=== PATIENT | female | born 1945 | race Caucasian/White ===

== ENCOUNTER 2018-11-10 10:00 | Observation (INO) | payer MEDICARE ==
[2018-11-09 15:41] VITALS: BP 138/75
[~2018-11-10] VITALS: Ht 154.9 cm; Wt 54.0 kg
[2018-11-10] VITALS (16 sets, daily range): BP systolic 102–152; BP diastolic 57–79
[2018-11-10] MEDS: CEFAZOLIN SODIUM 1 GM VIAL IVP ONE ×2 (08:00→17:15)
[~2018-11-10 10:00] MED LIST: CALC600T12 PO; CHOL200016 PO; INSTAFLEX PO; LEVO75TA10 PO; PREMC VG; ROSU10TA27 PO
[2018-11-10] MEDS ORDERED: LACTATED RINGERS 1000ML 1,000 ML IV ONE (10:46)
[2018-11-10] MEDS ORDERED: CEFAZOLIN SODIUM 1 GM VIAL ONE (10:46)
--- NOTE | 2018-11-10 11:31 | NUR ---
PAIN pt states no pain at rest,shoulder hurts when moving
[2018-11-10] MEDS ORDERED: POLY17PO4 PO (12:23)
[2018-11-10] MEDS ORDERED: MIDAZOLAM HCL 1 MG/ML 2ML VIAL ONE (16:48)
[2018-11-10] MEDS ORDERED: ONDANSETRON HCL 4 MG/2 ML VIAL ONE (16:54)
[2018-11-10] MEDS ORDERED: ROCURONIUM 10MG/1ML SYR 10 MG/ML ML ONE ×2 (16:54→17:36)
[2018-11-10] MEDS ORDERED: PROPOFOL 10 MG/ML 20ML VIAL IV ONE (16:54)
[2018-11-10] MEDS ORDERED: EPINEPHRINE 1 MG/ML 30ML VIAL IJ ONE (17:08)
[2018-11-10] MEDS ORDERED: DEXAMETHASONE SOD PHOSPHATE 10MG/ML 1ML VIAL ONE (17:08)
[2018-11-10] MEDS ORDERED: ROPIVACAINE 0.5% 5MG/ML 30ML IJ ONE (17:26)
[2018-11-10] MEDS ORDERED: FENTANYL CITRATE PF 50 MCG/1 ML 2ML VIAL ONE (19:09)
[2018-11-10] MEDS ORDERED: GLYCOPYRROLATE 1 MG/5 ML SYRINGE ONE (19:18)
[2018-11-10] MEDS ORDERED: NEOSTIGMINE 5MG/5ML SYR IV ONE (19:18)
[2018-11-10] MEDS ORDERED: CEPH500B PO (19:40)
[2018-11-10] MEDS ORDERED: HYDR-4457 PO (19:40)
[2018-11-10] MEDS ORDERED: NAPR-1192 PO (19:40)
[2018-11-10] MEDS ORDERED: MEPERIDINE-PF 25 MG/ML SYG ONE (20:14)
--- NOTE | 2018-11-10 20:40 | NUR ---
post op note received patient from pacu, patient awake, alert, ox3, no sob, no c/o pain ,at this time, dressing left shoulder d/i , left arm sling intact, keep pillow under left elbow, right hand with 20 gauge catheter with ivf infusing well, ble scds in place, patients at bedside, teach plan of care and expected outcome, both verbalize understanding via teach back
[2018-11-10] MEDS ORDERED: LACTATED RINGERS 1000ML 1,000 ML IV SCH (21:15)
[2018-11-10] MEDS ORDERED: HYDROCODONE/ACETAMINOPHEN 5/325 MG TAB PO PRN (21:15)
[2018-11-10] MEDS ORDERED: KETOROLAC TROMETHAMINE 15MG/ML IV PRN (21:15)
[2018-11-10] MEDS ORDERED: ONDANSETRON HCL 4 MG/2 ML VIAL IVP PRN (21:15)
[2018-11-10] MEDS ORDERED: ESTROGENS,CONJUGATED 0.625 MG/GM 42.5 GM VAG CRM VG SCH (23:00)
[2018-11-11 00:29] VITALS: BP 105/60
[2018-11-11 03:30] VITALS: BP 104/54
[2018-11-11] MEDS ORDERED: LEVOTHYROXINE 75 MCG TABLET PO SCH (06:30)
[2018-11-11 08:00] VITALS: BP 108/67
[2018-11-11] MEDS ORDERED: CEPHALEXIN 500 MG CAPSULE PO ONE (08:00)
[2018-11-11] MEDS ORDERED: CALCIUM 600 + VITAMIN D 400 TABLET PO SCH (09:00)
[2018-11-11] MEDS ORDERED: ***HM***Cholecalciferol (Vitamin D3) 2,000 UNIT PO SCH (09:00)
[2018-11-11] MEDS ORDERED: INSTAFLEX PO SCH (09:00)
[2018-11-11] MEDS ORDERED: POLYETHYLENE GLYCOL 3350 17 GM POWD.PACK PO SCH (09:00)
--- NOTE | 2018-11-11 10:30 | NUR ---
DISCHARGE DISCHARGE TEACHING DONE WITH PATIENT AND FAMILY USING TEACHBACK METHOD, VERBALIZED UNDERSTANDING. NO NOTED SOB OR DISTRESS. DRESSING IS DRY AND INTACT. DRESSING TEACHING DONE WITH PATIENT AND FAMILY USING TEACHBACK METHOD, VERBALIZED UNDERSTANDING. IV REMOVED, CATH TIP INTACT. SLING USE TEACHING DONE WITH PATIENT, VERBALIZED UNDERSTANDING. PENDING TO BE TRANSFERRED OUT VIA PRIVATE VEHICLE.
[2018-11-11] MEDS ORDERED: ROSUVASTATIN CALCIUM 10 MG PO SCH (21:00)
== END 2018-11-11 10:56 | disposition home or self-care (01) ==
LOC: DAH 10:00 → 4AH 10:01 → DAH 10:01
PROVIDERS: ADMIT Orthopaedic Surgery; ATTEND Orthopaedic Surgery
DX: M75.102 Unspecified rotator cuff tear or rupture of left shoulder, not specified as traumatic (principal); M19.019 Primary osteoarthritis, unspecified shoulder; E78.00 Pure hypercholesterolemia, unspecified; G89.29 Other chronic pain; E03.9 Hypothyroidism, unspecified; Z82.49 Family history of ischemic heart disease and other diseases of the circulatory system; Z79.899 Other long term (current) drug therapy; Z88.2 Allergy status to sulfonamides
CPT/HCPCS: 29824; 29826; 29827; A4218; A4565; A4649 ×5; A4930 ×2; A6204; C1763; G0168; G0378 ×25; J0171; J0690; J1100; J2175; J2250; J2405; J2704; J2710; J2795; J3010; J3490; J7120 ×2